=== PATIENT | female | born 1955 | race Caucasian/White ===

== ENCOUNTER 2018-02-16 10:06 | Outpatient (CLI) | payer BC ==
--- NOTE | 2018-02-16 15:14 | MRI ---
MRI BRAIN WITH AND WITHOUT CONTRAST: HISTORY: 62-year-old female with R42 - dizziness and giddiness. History of breast cancer. TECHNIQUE: Multiple sequences obtained in axial, sagittal, and coronal planes; pre and post IV injection of gado linium-based contrast agent: 16 ml of MultiHance FINDINGS: The ventricles are normal in size and configuration. There is no restricted diffusion, abnormal intr aaxial enhancement, mass, midline shift or any other mass effect, recent intraaxial hemorrhage, or ex traaxial fluid collection. There are a few scattered punctate T2-hyperintensities in the cerebral whi te matter consistent with mild chronic ischemic white matter changes due to mild microvascular athero sclerosis. There is a small, approximately 1 cm patch of T2 hyperintensity in the periventricular white matter a butting the frontal horn of the right lateral ventricle. This may be part of the chronic ischemic whi te matter changes, but the alternative diagnosis would be a small old deep white matter infarction. IMPRESSION: 1. Mild chronic ischemic white matter changes. 2. No evidence of intracranial metastatic disease. 3. Otherwise negative. thereas POS: AYDEE
== END 2018-02-16 10:07 | disposition home or self-care (01) ==
LOC: BICMAMMO 10:06
PROVIDERS: ATTEND Internal Medicine Hematology & Oncology
DX: R42 Dizziness and giddiness (principal); I25.10 Atherosclerotic heart disease of native coronary artery without angina pectoris; R00.2 Palpitations; R06.02 Shortness of breath; Z85.3 Personal history of malignant neoplasm of breast
CPT/HCPCS: 70553; 77066; 82565; G0279

== ENCOUNTER 2018-07-09 09:43 | Day surgery (SDC) | payer MEDICARE ==
[2018-07-09] MEDS ORDERED: Iopamidol 370 76% 100 ML VIAL ONE (09:44)
[2018-07-09 12:22] LABS: #Lymphocytes 1.2 thou/uL (1.20-3.40); #Monocytes 0.4 thou/uL (0.11-0.59); #Neutrophils 2.9 thou/uL (1.40-6.50); %Basophils 0.7 % (0.0-1.0); %Lymphocytes 26.3 % (21.0-51.0); %Monocytes 7.9 % (0.0-10.0); %Neutrophils 64.1 % (42.0-75.0); Mean Corpuscular HGB CONC 32.5 g/dL (32.0-36.0); Mean Platelet Volume 8.1 fL (7.4-10.4); Platelet Count 227 thou/uL (130-400); RBC Distribution Width 12.2 % (11.5-14.5); Red Blood Cell (RBC) Count 3.94 mill/uL (4.20-5.40); White Blood Cell (WBC) Count 4.5 thou/uL (4.8-10.8)
[2018-07-09 12:29] LABS: INR-International Normal Ratio 0.9; Prothrombin Time 12.7 SEC (12.0-14.7)
[2018-07-09 12:30] LABS: PTT 29.9 SEC (22.9-36.1)
[2018-07-09 12:53] LABS: ALT (SGPT) 19 U/L (8-55); AST (SGOT) 17 U/L (5-34); Albumin 4.5 g/dL (3.4-4.8); Alkaline Phosphatase 81 U/L (40-150); Anion Gap 14 mmol/L (10-20); BUN (Urea Nitrogen) 22 mg/dL (9.8-20.1); Bilirubin, Total 0.7 mg/dL (0.2-1.2); Calc. Creatinine Clearance 0 mL/min (70-130); Carbon Dioxide 22 mmol/L (23-31); Cardiac Risk 3.5 (Less than 4.5); Chloride 107 mmol/L (98-107); Cholesterol 205 mg/dl (< 200 Desired); Estimated GFR-MDRD 40; Globulin 2.8 g/dL (2.4-3.5); Glucose 77 mg/dL (80-115); HDL Cholesterol 59 mg/dL (>60 Neg Risk); LDL Cholesterol, Calculated 131 mg/dL; Potassium 4.1 mmol/L (3.5-5.1); Protein, Total 7.3 g/dL (6.0-8.3); Sodium 139 mmol/L (136-145); Triglycerides 76 mg/dL (Less than 150)
[2018-07-09] MEDS ORDERED: Midazolam HCl 2 mg/2 ml Vial ONE ×2 (13:49→14:47)
[2018-07-09] MEDS ORDERED: Fentanyl 100 MCG/2 ML VIAL ONE (13:49)
[2018-07-09] MEDS ORDERED: Heparin 10,000 UNITS/1 ML VIAL ONE (13:54)
[2018-07-09] MEDS ORDERED: Verapamil 5 MG/2 ML VIAL ONE (13:54)
[2018-07-09] MEDS ORDERED: Nitroglycerin 100MG/250ML BOT 250 ML ONE (13:54)
[2018-07-09] MEDS ORDERED: Nitroglycerin 0.4 MG TAB (25 Tab Bottle) SL PRN (15:22)
[2018-07-09] MEDS ORDERED: Sodium Chloride 0.9% 1,000 ML IV SCH (15:22)
[2018-07-09] MEDS ORDERED: traMADol HCl 50 MG TAB PO PRN (15:22)
--- NOTE | 2018-07-09 17:10 | EKG ---
Test Reason : PREOP Blood Pressure : / mmHG Vent. Rate : 064 BPM Atrial Rate : 064 BPM P-R Int : 208 ms QRS Dur : 090 ms QT Int : 422 ms P-R-T Axes : 051 006 032 degrees QTc Int : 435 ms Normal sinus rhythm Normal ECG No previous ECGs available Confirmed by NING SPRINGER ([id number]) on 07/09/2018 5:10:16 PM Referred By: ADAN Confirmed By:NING SPRINGER
[2018-07-10] MEDS ORDERED: Midazolam HCl 2 mg/2 ml Vial IVP SCH (14:00)
== END 2018-07-09 17:55 | disposition home or self-care (01) ==
LOC: CCL 09:43
PROVIDERS: ATTEND Internal Medicine Cardiovascular Disease
PROC: 4A023N7 Measurement of Cardiac Sampling and Pressure, Left Heart, Percutaneous Approach (ICD-10-PCS; principal; 2018-07-09)
PROC: B2151ZZ Fluoroscopy of Left Heart using Low Osmolar Contrast (ICD-10-PCS; 2018-07-09)
DX: I25.10 Atherosclerotic heart disease of native coronary artery without angina pectoris (principal); I10 Essential (primary) hypertension; E78.00 Pure hypercholesterolemia, unspecified; Z79.82 Long term (current) use of aspirin; Z79.899 Other long term (current) drug therapy; Z88.2 Allergy status to sulfonamides; Z88.6 Allergy status to analgesic agent
CPT/HCPCS: 80053; 80061; 85025; 85610; 85730; 93005; 93010; 93458; 99152; C1769; J1644; J2250; J3010; Q9967